=== PATIENT | male | born 1930 | race African-American/Black ===

== ENCOUNTER 2018-08-09 12:06 | Inpatient (IN) | payer MEDICARE, MEDICAID ==
[~2018-08-09] VITALS: Ht 190.5 cm; Wt 79.8 kg
[~2018-08-09 12:06] MED LIST: ASPI-1158; ATOR10TA PO; BICA50TA48; CLOP75TA16; COR6 PO; FAMO-38 PO; FERR325T30 PO; FOLI-43 PO; ISOS60TA4 PO; NITR0.4T; SPIR25TA PO
[2018-08-09] MEDS ORDERED: SODIUM CHLORIDE 0.9% 1,000 ML IV ONE (12:40)
[2018-08-09] MEDS ORDERED: AMPICILLIN SOD/SULBACTAM NA 3 G in SODIUM CHLORIDE 0.9% 100 ML IV SCH (12:45)
[2018-08-09 13:19] LABS: HEMATOCRIT. 31.7 % (42.0-52.0); HEMOGLOBIN. 10.4 g/dL (14.0-18.0); MEAN CORPUSCULAR HEMOGLOBIN 40.3 pg (28.0-32.0); MEAN PLATELET VOLUME 9.1 fl (7.4-10.4); PLATELET 194 x1000/uL (130-400); RED BLOOD CELL COUNT 2.58 mill/uL (4.7-6.1); RED CELL DISTRIBUTION WIDTH 16.4 % (11.6-14.6)
[2018-08-09 13:23] LABS: CHLORIDE 109 mEq/L (98-107)
[2018-08-09] MEDS ORDERED: HYDROCODONE/ACETAMINOPHEN 10/325MG TABLET PO ONE (14:15)
[2018-08-09] MEDS ORDERED: CLONIDINE 0.1MG TABLET PO PRN (14:30)
[2018-08-09] MEDS ORDERED: ONDANSETRON HCL 4MG/2ML INJ IV PRN (14:30)
[2018-08-09 15:40] VITALS: BP 144/72
[2018-08-09 16:00] VITALS: BP 144/72
[2018-08-09 16:13] LABS: PLATELET ESTIMATE NORMAL
[2018-08-09] MEDS: ENOXAPARIN 40MG/0.4ML SYR SUBCUT SCH (17:08)
[2018-08-09] MEDS: HYDROMORPHONE HCL/PF 2MG/ML CPJ IV PRN (17:08)
[2018-08-09] MEDS ORDERED: VANCOMYCIN 1500MG in DEXTROSE 5% WATER 250ML IV NR (18:00)
[2018-08-09] MEDS: HYDROCODONE/ACETAMINOPHEN 5/325MG TABLET PO PRN (18:58)
[2018-08-09] MEDS: DEXT 5%/0.45% NACL 1000ML 1,000 ML IV SCH (19:55)
[2018-08-09 20:00] VITALS: BP 166/76
[2018-08-09] MEDS ORDERED: PIPERACILLIN/TAZ 3.375G PREMIX 50 ML IV SCH (20:00)
[2018-08-09] MEDS: ATORVASTATIN CALCIUM 10MG TABLET PO SCH (21:08)
[2018-08-09] MEDS: FAMOTIDINE 20MG TABLET PO SCH (21:08)
[2018-08-09] MEDS: CARVEDILOL 6.25 MG TABLET PO SCH (21:10)
[2018-08-10] VITALS: BP 124/50
[2018-08-10] MEDS: HYDROCODONE/ACETAMINOPHEN 5/325MG TABLET PO PRN ×2 (01:52→23:55)
[2018-08-10 04:00] VITALS: BP 129/51
[2018-08-10] MEDS: PIPERACILLIN/TAZ 3.375G PREMIX 50 ML IV SCH ×2 (05:11→11:57)
[2018-08-10 06:43] LABS: HEMATOCRIT. 27.9 % (42.0-52.0); HEMOGLOBIN. 9.4 g/dL (14.0-18.0); MEAN CORPUSCULAR HEMOGLOBIN 40.5 pg (28.0-32.0); MEAN CORPUSCULAR VOLUME 120.2 fL (80.0-94.0); MEAN PLATELET VOLUME 9.1 fl (7.4-10.4); PLATELET 178 x1000/uL (130-400); RED BLOOD CELL COUNT 2.32 mill/uL (4.7-6.1); RED CELL DISTRIBUTION WIDTH 15.6 % (11.6-14.6)
[2018-08-10 06:46] LABS: CHLORIDE 109 mEq/L (98-107)
[2018-08-10 06:55] LABS: LDL CHOLESTEROL 79 mg/dL (5-100)
[2018-08-10 06:58] LABS: HDL CHOLESTEROL 45 mg/dL (40-59)
[2018-08-10] MEDS: DEXT 5%/0.45% NACL 1000ML 1,000 ML IV SCH ×2 (07:24→21:15)
[2018-08-10 08:00] VITALS: BP 108/52
[2018-08-10] MEDS: BICALUTAMIDE 50 MG TABLET PO SCH (08:55)
[2018-08-10] MEDS: CARVEDILOL 6.25 MG TABLET PO SCH ×2 (08:55→20:00)
[2018-08-10] MEDS: FOLIC ACID 1MG TABLET PO SCH (08:55)
[2018-08-10] MEDS: ISOSORBIDE MONONITRATE 60MG TABLET SR 24HR PO SCH (08:56)
[2018-08-10] MEDS: FAMOTIDINE 20MG TABLET PO SCH ×2 (08:56→20:01)
[2018-08-10] MEDS ORDERED: CLOPIDOGREL 75MG TABLET PO SCH (09:00)
[2018-08-10] MEDS ORDERED: FUROSEMIDE 40MG/4ML VIAL IV SCH (09:00)
[2018-08-10] MEDS ORDERED: VANCOMYCIN 1250MG in DEXTROSE 5% WATER 250ML IV SCH (10:00)
[2018-08-10 12:15] VITALS: BP 128/50
[2018-08-10] MEDS: VANCOMYCIN 1250MG in DEXTROSE 5% WATER 250ML IV SCH (12:49)
[2018-08-10] MEDS: ASPIRIN 81MG TABLET PO SCH (12:49)
[2018-08-10] MEDS: HYDROMORPHONE HCL/PF 2MG/ML CPJ IV PRN ×2 (13:16→20:00)
[2018-08-10 15:35] VITALS: BP 125/59
[2018-08-10 16:23] LABS: PLATELET ESTIMATE NORMAL
[2018-08-10 16:58] LABS: TOTAL IRON BINDING CAPACITY 219 ug/dL (250-450)
[2018-08-10 17:23] LABS: VITAMIN B12 SERUM 668 pg/mL (211-911)
[2018-08-10] MEDS ORDERED: CLINDAMYCIN 600 MG in DEXTROSE 5% WATER 50 ML IV SCH (18:00)
[2018-08-10] MEDS: CEFTRIAXONE 1 G PREMIX 50 ML IV SCH (18:35)
[2018-08-10] MEDS: ENOXAPARIN 40MG/0.4ML SYR SUBCUT SCH (18:35)
[2018-08-10] MEDS: CLINDAMYCIN 600MG PREMIX 50 ML IV SCH (19:56)
[2018-08-10 20:00] VITALS: BP 137/58
[2018-08-10] MEDS: ATORVASTATIN CALCIUM 10MG TABLET PO SCH (20:00)
[2018-08-10] MEDS ORDERED: IOHEXOL-350 100 ML BOTTLE ONE (21:06)
[2018-08-11] VITALS: BP 123/53
[2018-08-11] MEDS: CLINDAMYCIN 600MG PREMIX 50 ML IV SCH ×3 (01:05→18:09)
[2018-08-11] MEDS: HYDROMORPHONE HCL/PF 2MG/ML CPJ IV PRN (03:15)
[2018-08-11 04:00] VITALS: BP 129/51
[2018-08-11] MEDS: VANCOMYCIN 1250MG in DEXTROSE 5% WATER 250ML IV SCH ×2 (05:45→23:46)
[2018-08-11 06:05] LABS: HEMOGLOBIN. 9.7 g/dL (14.0-18.0); MEAN CORPUSCULAR HEMOGLOBIN 40.3 pg (28.0-32.0); MEAN CORPUSCULAR VOLUME 120.1 fL (80.0-94.0); PLATELET 185 x1000/uL (130-400); RED BLOOD CELL COUNT 2.41 mill/uL (4.7-6.1); RED CELL DISTRIBUTION WIDTH 15.6 % (11.6-14.6)
[2018-08-11 06:17] LABS: CHLORIDE 105 mEq/L (98-107)
[2018-08-11 06:20] LABS: CLARITY URINE CLEAR (CLEAR); COLOR URINE YELLOW (YELLOW); KETONES URINE NEGATIVE (NEGATIVE); LEUKOCYTE ESTERASE URINE NEGATIVE (NEGATIVE); NITRITE URINE POSITIVE (NEGATIVE); OCCULT BLOOD URINE NEGATIVE (NEGATIVE); PROTEIN URINE TRACE (NEGATIVE); SPECIFIC GRAVITY URINE 1.049 (1.005-1.030); UROBILINOGEN URINE 0.2 E.U./dL (0.2-1.0)
[2018-08-11 08:00] VITALS: BP 108/57
[2018-08-11] MEDS: ISOSORBIDE MONONITRATE 60MG TABLET SR 24HR PO SCH (09:00)
[2018-08-11] MEDS: CARVEDILOL 6.25 MG TABLET PO SCH ×2 (09:00→20:27)
[2018-08-11] MEDS: FUROSEMIDE 20MG TABLET PO SCH (09:05)
[2018-08-11] MEDS: ASPIRIN 81MG TABLET PO SCH (09:05)
[2018-08-11] MEDS: FOLIC ACID 1MG TABLET PO SCH (09:05)
[2018-08-11] MEDS: FAMOTIDINE 20MG TABLET PO SCH ×2 (09:05→20:27)
[2018-08-11 09:43] LABS: PLATELET ESTIMATE NORMAL
[2018-08-11] MEDS: BICALUTAMIDE 50 MG TABLET PO SCH (10:01)
[2018-08-11 12:00] VITALS: BP 126/60
[2018-08-11 16:00] VITALS: BP 116/62
[2018-08-11] MEDS: CEFTRIAXONE 1 G PREMIX 50 ML IV SCH (16:08)
[2018-08-11] MEDS: ENOXAPARIN 40MG/0.4ML SYR SUBCUT SCH (16:08)
[2018-08-11 20:00] VITALS: BP 127/58
[2018-08-11] MEDS: ACETAMINOPHEN 325MG TABLET PO PRN (20:24)
[2018-08-11] MEDS: ATORVASTATIN CALCIUM 10MG TABLET PO SCH (20:27)
[2018-08-12] VITALS (7 sets, daily range): BP systolic 105–129; BP diastolic 47–58
[2018-08-12] MEDS: HYDROCODONE/ACETAMINOPHEN 5/325MG TABLET PO PRN ×3 (00:22→21:06)
[2018-08-12] MEDS: CLINDAMYCIN 600MG PREMIX 50 ML IV SCH ×3 (02:03→18:14)
[2018-08-12 06:34] LABS: HEMATOCRIT. 29.8 % (42.0-52.0); HEMOGLOBIN. 10.6 g/dL (14.0-18.0); MEAN CORPUSCULAR HEMOGLOBIN 42.3 pg (28.0-32.0); MEAN CORPUSCULAR VOLUME 119.3 fL (80.0-94.0); PLATELET 197 x1000/uL (130-400); RED CELL DISTRIBUTION WIDTH 15.5 % (11.6-14.6)
[2018-08-12 06:48] LABS: CHLORIDE 106 mEq/L (98-107)
[2018-08-12] MEDS: FAMOTIDINE 20MG TABLET PO SCH ×2 (09:08→20:39)
[2018-08-12] MEDS: ASPIRIN 81MG TABLET PO SCH (09:08)
[2018-08-12] MEDS: FUROSEMIDE 20MG TABLET PO SCH (09:08)
[2018-08-12] MEDS: FOLIC ACID 1MG TABLET PO SCH (09:08)
[2018-08-12] MEDS: ISOSORBIDE MONONITRATE 60MG TABLET SR 24HR PO SCH (09:09)
[2018-08-12] MEDS: CARVEDILOL 6.25 MG TABLET PO SCH ×2 (09:09→20:54)
[2018-08-12] MEDS: BICALUTAMIDE 50 MG TABLET PO SCH (10:40)
[2018-08-12] MEDS: VANCOMYCIN 1 G PREMIX 200 ML IV SCH (13:05)
[2018-08-12 13:06] LABS: PLATELET ESTIMATE NORMAL
[2018-08-12] MEDS: CEFTRIAXONE 1 G PREMIX 50 ML IV SCH (16:09)
[2018-08-12] MEDS: ENOXAPARIN 40MG/0.4ML SYR SUBCUT SCH (16:09)
[2018-08-12] MEDS: ATORVASTATIN CALCIUM 10MG TABLET PO SCH (20:39)
[2018-08-13] MEDS: CLINDAMYCIN 600MG PREMIX 50 ML IV SCH ×3 (01:29→19:30)
[2018-08-13] MEDS: VANCOMYCIN 1 G PREMIX 200 ML IV SCH ×2 (01:29→13:06)
[2018-08-13 03:54] VITALS: BP 119/56
[2018-08-13 08:00] VITALS: BP 116/50
[2018-08-13] MEDS: FUROSEMIDE 20MG TABLET PO SCH (09:00)
[2018-08-13] MEDS: ASPIRIN 81MG TABLET PO SCH (09:00)
[2018-08-13] MEDS: FAMOTIDINE 20MG TABLET PO SCH (09:00)
[2018-08-13] MEDS: FOLIC ACID 1MG TABLET PO SCH (09:00)
[2018-08-13] MEDS: ISOSORBIDE MONONITRATE 60MG TABLET SR 24HR PO SCH (09:01)
[2018-08-13] MEDS: CARVEDILOL 6.25 MG TABLET PO SCH ×2 (09:01→20:12)
[2018-08-13] MEDS: HYDROCODONE/ACETAMINOPHEN 5/325MG TABLET PO PRN ×2 (09:02→20:15)
[2018-08-13] MEDS: BICALUTAMIDE 50 MG TABLET PO SCH (10:15)
[2018-08-13] MEDS: PANTOPRAZOLE SODIUM 40 MG/VIAL IV SCH (11:23)
[2018-08-13] MEDS: ACETAMINOPHEN 325MG TABLET PO PRN (11:23)
[2018-08-13 11:44] VITALS: BP 115/62
[2018-08-13 15:50] VITALS: BP 113/65
[2018-08-13] MEDS: ENOXAPARIN 40MG/0.4ML SYR SUBCUT SCH (16:10)
[2018-08-13] MEDS: CEFTRIAXONE 1 G PREMIX 50 ML IV SCH (16:11)
[2018-08-13 20:00] VITALS: BP 120/55
[2018-08-13] MEDS: ATORVASTATIN CALCIUM 10MG TABLET PO SCH (20:15)
[2018-08-13] MEDS: HYDROMORPHONE HCL/PF 2MG/ML CPJ IV PRN (23:14)
[2018-08-14] VITALS (12 sets, daily range): BP systolic 103–132; BP diastolic 46–85
[2018-08-14] MEDS: CLINDAMYCIN 600MG PREMIX 50 ML IV SCH ×2 (01:56→09:04)
[2018-08-14 07:07] LABS: CHLORIDE 104 mEq/L (98-107)
[2018-08-14 07:58] LABS: HEMATOCRIT. 29.6 % (42.0-52.0); MEAN CORPUSCULAR HEMOGLOBIN 40.4 pg (28.0-32.0); MEAN CORPUSCULAR VOLUME 119.5 fL (80.0-94.0); MEAN PLATELET VOLUME 9.1 fl (7.4-10.4); PLATELET 200 x1000/uL (130-400); RED BLOOD CELL COUNT 2.48 mill/uL (4.7-6.1); RED CELL DISTRIBUTION WIDTH 15.4 % (11.6-14.6)
[2018-08-14] MEDS: HYDROMORPHONE HCL/PF 2MG/ML CPJ IV PRN (08:11)
[2018-08-14] MEDS: ASPIRIN 81MG TABLET PO SCH ×2 (09:00→09:02)
[2018-08-14] MEDS ORDERED: BICALUTAMIDE 50 MG TABLET PO SCH (09:00)
[2018-08-14] MEDS: FUROSEMIDE 20MG TABLET PO SCH (09:02)
[2018-08-14] MEDS: ISOSORBIDE MONONITRATE 60MG TABLET SR 24HR PO SCH (09:02)
[2018-08-14] MEDS: CARVEDILOL 6.25 MG TABLET PO SCH ×2 (09:02→21:42)
[2018-08-14] MEDS: FOLIC ACID 1MG TABLET PO SCH (09:04)
[2018-08-14] MEDS: PANTOPRAZOLE SODIUM 40 MG/VIAL IV SCH (09:08)
[2018-08-14] MEDS: BICALUTAMIDE 50 MG TABLET PO SCH (09:27)
[2018-08-14] MEDS: VANCOMYCIN 1 G PREMIX 200 ML IV SCH ×2 (12:34)
[2018-08-14] MEDS: HYDROCODONE/ACETAMINOPHEN 5/325MG TABLET PO PRN (12:35)
[2018-08-14 13:31] LABS: PLATELET ESTIMATE NORMAL
[2018-08-14] MEDS ORDERED: NICARDIPINE 100MCG/ML 10ML VIAL (CATH LAB) IV ONE (13:34)
[2018-08-14] MEDS ORDERED: NITROGLYCERIN 50MCG/ML 10ML VIAL (CATH LAB) IV ONE (13:34)
[2018-08-14] MEDS ORDERED: HEPARIN SODIUM 1,000 UNIT/1ML VIAL IV ONE (13:34)
[2018-08-14] MEDS ORDERED: MIDAZOLAM HCL 2 MG/2 ML VIAL ONE (14:12)
[2018-08-14] MEDS ORDERED: FENTANYL CITRATE/PF 50MCG/ML 2ML VIAL ONE (14:12)
[2018-08-14] MEDS ORDERED: LIDOCAINE HCL 1% 20ML VIAL (Pyxis) INJ ONE (14:13)
[2018-08-14] MEDS ORDERED: IODIXANOL 320MG/ML 100 ML BOTTLE IV ONE (14:13)
[2018-08-14] MEDS ORDERED: ASPIRIN/SOD BICARB/CITRIC ACID 324MG TAB EFF ONE (14:13)
[2018-08-14] MEDS ORDERED: IOHEXOL-300 100 ML BOTTLE ONE (14:48)
[2018-08-14] MEDS ORDERED: CLOPIDOGREL 75MG TABLET ONE (15:44)
[2018-08-14] MEDS ORDERED: CLOPIDOGREL 75MG TABLET PO ONE (15:44)
[2018-08-14] MEDS: ENOXAPARIN 40MG/0.4ML SYR SUBCUT SCH (16:00)
[2018-08-14] MEDS ORDERED: ATROPINE SULFATE 1MG/10ML SYR IV PRN (16:00)
[2018-08-14] MEDS ORDERED: ACETAMINOPHEN 325MG TABLET PO PRN (16:00)
[2018-08-14] MEDS ORDERED: SODIUM CHLORIDE 0.45% 1,000 ML IV ONE (16:15)
[2018-08-14] MEDS: CEFTRIAXONE 1 G PREMIX 50 ML IV SCH (17:29)
[2018-08-14] MEDS ORDERED: CLINDAMYCIN 600 MG in DEXTROSE 5% WATER 50 ML IV SCH (18:00)
[2018-08-14] MEDS: MORPHINE SULFATE 4 MG/ML CPJ (NOT FOR IM USE) IV PRN (19:42)
[2018-08-14] MEDS: ATORVASTATIN CALCIUM 10MG TABLET PO SCH (21:42)
[2018-08-15] VITALS (19 sets, daily range): BP systolic 105–146; BP diastolic 43–62
[2018-08-15] MEDS: MORPHINE SULFATE 4 MG/ML CPJ (NOT FOR IM USE) IV PRN ×2 (01:18→08:48)
[2018-08-15 07:11] LABS: HEMATOCRIT. 27.8 % (42.0-52.0); HEMOGLOBIN. 9.6 g/dL (14.0-18.0); MEAN CORPUSCULAR HEMOGLOBIN 40.3 pg (28.0-32.0); MEAN CORPUSCULAR VOLUME 117.3 fL (80.0-94.0); PLATELET 198 x1000/uL (130-400); RED BLOOD CELL COUNT 2.37 mill/uL (4.7-6.1); RED CELL DISTRIBUTION WIDTH 14.8 % (11.6-14.6)
[2018-08-15 07:36] LABS: CHLORIDE 105 mEq/L (98-107)
[2018-08-15] MEDS: PANTOPRAZOLE SODIUM 40 MG/VIAL IV SCH (08:34)
[2018-08-15] MEDS: CEFAZOLIN 1000MG PREMIX 50 ML IV SCH ×2 (08:34→12:59)
[2018-08-15] MEDS: FOLIC ACID 1MG TABLET PO SCH (08:34)
[2018-08-15] MEDS: ASPIRIN 81MG TABLET PO SCH (08:35)
[2018-08-15] MEDS: ISOSORBIDE MONONITRATE 60MG TABLET SR 24HR PO SCH (08:35)
[2018-08-15] MEDS: FUROSEMIDE 20MG TABLET PO SCH (08:35)
[2018-08-15] MEDS: CARVEDILOL 6.25 MG TABLET PO SCH (08:35)
[2018-08-15] MEDS ORDERED: CLOPIDOGREL 75MG TABLET PO SCH (09:00)
[2018-08-15] MEDS: BICALUTAMIDE 50 MG TABLET PO SCH (10:11)
[2018-08-15 12:21] LABS: PLATELET ESTIMATE NORMAL
== END 2018-08-15 15:44 | DRG 181 ==
LOC: ER 12:23 → 6EST 14:23 → EDBEDREQ 14:29 → ENRESERV 14:35 → 3WST 08-14 16:18
PROVIDERS: ADMIT Internal Medicine Nephrology; ATTEND Internal Medicine Nephrology
PROC: B41G1ZZ Fluoroscopy of Left Lower Extremity Arteries using Low Osmolar Contrast (ICD-10-PCS; principal; 2018-08-14)
PROC: 047L3DZ Dilation of Left Femoral Artery with Intraluminal Device, Percutaneous Approach (ICD-10-PCS; 2018-08-14)
PROC: 047U3ZZ Dilation of Left Peroneal Artery, Percutaneous Approach (ICD-10-PCS; 2018-08-14)
DX: I73.9 Peripheral vascular disease, unspecified (principal); E43 Unspecified severe protein-calorie malnutrition; L03.115 Cellulitis of right lower limb; I11.0 Hypertensive heart disease with heart failure; I50.9 Heart failure, unspecified; L03.116 Cellulitis of left lower limb; L97.919 Non-pressure chronic ulcer of unspecified part of right lower leg with unspecified severity; D72.819 Decreased white blood cell count, unspecified; E78.00 Pure hypercholesterolemia, unspecified; I99.8 Other disorder of circulatory system; I25.10 Atherosclerotic heart disease of native coronary artery without angina pectoris; H91.90 Unspecified hearing loss, unspecified ear; S90.812A Abrasion, left foot, initial encounter; X58.XXXA Exposure to other specified factors, initial encounter; E78.5 Hyperlipidemia, unspecified; L97.929 Non-pressure chronic ulcer of unspecified part of left lower leg with unspecified severity; R26.9 Unspecified abnormalities of gait and mobility; Z79.82 Long term (current) use of aspirin; Z85.028 Personal history of other malignant neoplasm of stomach; Z95.1 Presence of aortocoronary bypass graft; Z79.899 Other long term (current) drug therapy; Y93.89 Activity, other specified; Y92.89 Other specified places as the place of occurrence of the external cause; Y99.8 Other external cause status; Z68.22 Body mass index [BMI] 22.0-22.9, adult; D53.9 Nutritional anemia, unspecified
CPT/HCPCS: 36415; 37226; 37228; 75635; 75710; 80048; 80061; 80202; 82270; 82607; 83540; 83550; 83735; 84100; 84484; 85044; 85347; 93005; 93306; 93971; 96365; 97022; 97116; 97162; 97166; 97530; 99285; C1725; C1760; C1769; C1887; C1893; C1894; C9113; J0295; J0690; J0696; J1170; J1644; J1650; J1940; J2250; J2270; J2543; J3010; J3370; J3490; J7030; J7040; J7050; J7060; Q9967

== ENCOUNTER 2019-02-06 08:37 | Inpatient (IN) | payer MEDICARE, MEDICAID ==
[~2019-02-06] VITALS: Ht 185.4 cm; Wt 84.8 kg
[~2019-02-06 08:37] MED LIST changes: -CLOP75TA16; +CLOP75TA4
[2019-02-06] MEDS ORDERED: POTA10CA42 MT (09:20)
[2019-02-06] MEDS ORDERED: TAMS-11 MT (09:20)
[2019-02-06] MEDS ORDERED: PHEN100C4 MT (09:20)
[2019-02-06] MEDS ORDERED: FLUT100B INH (09:20)
[2019-02-06] MEDS ORDERED: PROM5SYR MT (09:20)
[2019-02-06] MEDS ORDERED: IODIXANOL 320MG/ML 100 ML BOTTLE IV ONE (09:39)
[2019-02-06] MEDS ORDERED: LIDOCAINE HCL 1% 20ML VIAL (Pyxis) INJ ONE (09:39)
[2019-02-06] MEDS ORDERED: ASPIRIN/SOD BICARB/CITRIC ACID 324MG TAB EFF ONE (09:40)
[2019-02-06] MEDS ORDERED: FENTANYL CITRATE/PF 50MCG/ML 2ML VIAL ONE (09:49)
[2019-02-06] MEDS ORDERED: MIDAZOLAM HCL 2 MG/2 ML VIAL ONE (09:49)
[2019-02-06 09:53] LABS: HEMATOCRIT 30.9 % (42.0-52.0); HEMOGLOBIN 10.4 g/dL (14.0-18.0); MEAN CORPUSCULAR HEMOGLOBIN 41.2 pg (28.0-32.0); MEAN CORPUSCULAR VOLUME 122.4 fL (80.0-94.0); PLATELET 165 x1000/uL (130-400); RED BLOOD CELL COUNT 2.53 mill/uL (4.7-6.1); RED CELL DISTRIBUTION WIDTH 16.4 % (11.6-14.6)
[2019-02-06] MEDS ORDERED: HEPARIN SODIUM 1,000 UNIT/1ML VIAL IV ONE (10:17)
[2019-02-06] MEDS ORDERED: NITROGLYCERIN 50MCG/ML 10ML VIAL (CATH LAB) IV ONE (10:17)
[2019-02-06] MEDS ORDERED: NICARDIPINE 100MCG/ML 10ML VIAL (CATH LAB) IV ONE (10:17)
[2019-02-06] MEDS ORDERED: IOHEXOL-300 100 ML BOTTLE ONE (10:38)
[2019-02-06] MEDS ORDERED: MORPHINE SULFATE 2 MG/ML CPJ (NOT FOR IM USE) IV PRN (11:45)
[2019-02-06] MEDS ORDERED: ACETAMINOPHEN 325MG TABLET PO PRN (11:45)
[2019-02-06] MEDS ORDERED: ATROPINE SULFATE 1MG/10ML SYR IV PRN (11:45)
[2019-02-06] MEDS ORDERED: ONDANSETRON HCL 4MG/2ML INJ IV PRN (11:45)
[2019-02-06] MEDS ORDERED: CLOPIDOGREL 75MG TABLET ONE (11:58)
[2019-02-06 13:25] VITALS: BP 141/78
[2019-02-06 14:00] VITALS: BP 139/73
[2019-02-06] MEDS ORDERED: SODIUM CHLORIDE 0.45% 1,000 ML IV ONE (14:15)
[2019-02-06] MEDS: PHENYTOIN SODIUM EXTENDED 100MG CAPSULE PO SCH ×2 (15:26→21:47)
[2019-02-06 16:00] VITALS: BP 141/74
[2019-02-06 18:00] VITALS: BP 137/59
[2019-02-06 20:00] VITALS: BP 136/55
[2019-02-06] MEDS ORDERED: ATORVASTATIN CALCIUM 20MG TABLET PO SCH (21:00)
[2019-02-06] MEDS: CARVEDILOL 3.125 MG TABLET PO SCH (21:46)
[2019-02-06 22:00] VITALS: BP 135/78
[2019-02-07] VITALS (7 sets, daily range): BP systolic 130–144; BP diastolic 56–72
[2019-02-07] MEDS: PHENYTOIN SODIUM EXTENDED 100MG CAPSULE PO SCH (05:50)
[2019-02-07 07:23] LABS: CHLORIDE 107 mEq/L (98-107)
[2019-02-07 07:31] LABS: HEMATOCRIT. 29.9 % (42.0-52.0); HEMOGLOBIN. 10.2 g/dL (14.0-18.0); MEAN CORPUSCULAR HEMOGLOBIN 42.1 pg (28.0-32.0); MEAN CORPUSCULAR VOLUME 123.2 fL (80.0-94.0); MEAN PLATELET VOLUME 9.2 fl (7.4-10.4); PLATELET 141 x1000/uL (130-400); RED BLOOD CELL COUNT 2.43 mill/uL (4.7-6.1); RED CELL DISTRIBUTION WIDTH 15.9 % (11.6-14.6)
[2019-02-07] MEDS: CARVEDILOL 3.125 MG TABLET PO SCH (08:45)
[2019-02-07] MEDS ORDERED: TAMSULOSIN HCL 0.4MG SR CAPSULE PO SCH (09:00)
[2019-02-07] MEDS ORDERED: ISOSORBIDE MONONITRATE 60MG TABLET SR 24HR PO SCH (09:00)
[2019-02-07] MEDS ORDERED: CLOPIDOGREL 75MG TABLET PO SCH (09:00)
[2019-02-07] MEDS ORDERED: ASPIRIN 81MG TABLET PO SCH (09:00)
[2019-02-07 14:00] LABS: NUCLEATED RED BLOOD CELLS 1 /100 WBC
[2019-02-07 14:01] LABS: PLATELET ESTIMATE NORMAL
== END 2019-02-07 14:49 | disposition home or self-care (01) | DRG 181 ==
LOC: CCL 08:37 → 3WST 08:38
PROVIDERS: ADMIT Specialist; ATTEND Specialist
PROC: B41F1ZZ Fluoroscopy of Right Lower Extremity Arteries using Low Osmolar Contrast (ICD-10-PCS; principal; 2019-02-06)
PROC: 04CK3ZZ Extirpation of Matter from Right Femoral Artery, Percutaneous Approach (ICD-10-PCS; 2019-02-06)
PROC: 04CM3ZZ Extirpation of Matter from Right Popliteal Artery, Percutaneous Approach (ICD-10-PCS; 2019-02-06)
PROC: 047L3DZ Dilation of Left Femoral Artery with Intraluminal Device, Percutaneous Approach (ICD-10-PCS; 2019-02-06)
DX: I73.9 Peripheral vascular disease, unspecified (principal); I65.29 Occlusion and stenosis of unspecified carotid artery; D64.9 Anemia, unspecified; G40.909 Epilepsy, unspecified, not intractable, without status epilepticus; I99.8 Other disorder of circulatory system; Z95.5 Presence of coronary angioplasty implant and graft; I25.10 Atherosclerotic heart disease of native coronary artery without angina pectoris; I10 Essential (primary) hypertension; N40.0 Benign prostatic hyperplasia without lower urinary tract symptoms; E78.00 Pure hypercholesterolemia, unspecified; K21.9 Gastro-esophageal reflux disease without esophagitis; I25.5 Ischemic cardiomyopathy; Z95.1 Presence of aortocoronary bypass graft; Z85.028 Personal history of other malignant neoplasm of stomach; Z79.02 Long term (current) use of antithrombotics/antiplatelets; Z90.3 Acquired absence of stomach [part of]
CPT/HCPCS: 36415; 37227; 75710; 80048; 85027; 93005; C1724; C1725; C1760; C1769; C1876; C1887; C1893; C1894; J1644; J2250; J3010; J3490; Q9967

== ENCOUNTER 2020-11-14 09:36 | Inpatient (IN) | payer MEDICARE, MEDICAID ==
[~2020-11-14] VITALS: Ht 365.8 cm; Wt 95.4 kg
[~2020-11-14 09:36] MED LIST changes: -ASPI-1158; +ASPI-1406 PO; -ATOR10TA PO; +ATOR20TA65 PO; -BICA50TA48; +CARV3.1242 PO; +CLOP75TA33 PO; -CLOP75TA4; -COR6 PO; -FAMO-38 PO; +FAMO20TA8 PO; +FERR325T23 PO; -FERR325T30 PO; -FOLI-43 PO; -ISOS60TA4 PO; +ISOS60TA76 PO; -NITR0.4T; +PHEN100C12 PO; -SPIR25TA PO; +TAMS-11 PO
[2020-11-14 11:03] LABS: BASOPHILS % 1.2 % (0.0-2.0); EOSINOPHILS % 0.1 % (0.0-5.0); HEMATOCRIT. 26.9 % (42.0-52.0); HEMOGLOBIN. 8.8 g/dL (14.0-18.0); LYMPHOCYTES % 25.4 % (20.0-50.0); MEAN CORPUSCULAR HEMOGLOBIN 41.9 pg (28.0-32.0); MEAN PLATELET VOLUME 11.1 fl (7.4-10.4); MONOCYTES % 14.5 % (2.0-8.0); NEUTROPHILS % 58.8 % (40.0-76.0); PLATELET 89 x1000/uL (130-400); RED CELL DISTRIBUTION WIDTH 19.2 % (11.6-14.6)
[2020-11-14 11:11] LABS: CHLORIDE 111 mEq/L (98-107)
[2020-11-14 11:13] LABS: INR 1.2
[2020-11-14 11:45] LABS: PLATELET ESTIMATE DECREASED
[2020-11-14] MEDS ORDERED: LEVOFLOXACIN 750MG PREMIX 150 ML IV ONE (12:00)
[2020-11-14 12:16] LABS: BG CARBOXYHEMOGLOBIN 0.3 % (0.5-1.5); BG DEOXYHEMOGLOBIN 0.5 % (0.0-5.0); BG FRACTION INSPIRED OXYGEN 100; BG HCO3 ACT 25.3 mmol/L (22.0-26.0); BG METHEMOGLOBIN 0.7 % (0.0-1.5); BG OXYGEN SATURATION 99.5 % (92.0-98.5); BG OXYHEMOGLOBIN 98.5 % (94.0-97.0); BG PCO2 50.3 mmHg (35.0-45.0); BG PO2 351.9 mmHg (75.0-100.0); BG SAMPLE SITE RIGHT RADIAL; BG VENT MODE MASK - NRB
[2020-11-14] MEDS: FUROSEMIDE 40MG/4ML VIAL IVP SCH (13:06)
[2020-11-14] MEDS ORDERED: ONDANSETRON HCL 4MG/2ML INJ IV PRN (14:15)
[2020-11-14] MEDS ORDERED: ACETAMINOPHEN 325MG TABLET PO PRN (14:15)
[2020-11-14] MEDS ORDERED: IPRATROPIUM/ALBUTEROL 0.5-3(2.5)MG/3ML NEB HHN PRN (16:30)
[2020-11-14] MEDS ORDERED: METRONIDAZOLE 500 MG PREMIX 100 ML IV SCH (18:00)
[2020-11-14] MEDS: CEFEPIME 1,000 MG in DEXTROSE 5% WATER 50 ML IV SCH (19:04)
[2020-11-14] MEDS: CARVEDILOL 3.125 MG TABLET PO SCH (21:00)
[2020-11-14] MEDS: ATORVASTATIN CALCIUM 20MG TABLET PO SCH (21:00)
[2020-11-14 21:10] VITALS: BP 136/63
[2020-11-14 22:00] VITALS: BP 134/65
[2020-11-15] VITALS (17 sets, daily range): BP systolic 106–134; BP diastolic 43–62
[2020-11-15] MEDS: CEFEPIME 1,000 MG in DEXTROSE 5% WATER 50 ML IV SCH ×3 (05:00→22:07)
[2020-11-15 07:19] LABS: HEMATOCRIT. 23.4 % (42.0-52.0); HEMOGLOBIN. 7.6 g/dL (14.0-18.0); MEAN CORPUSCULAR HEMOGLOBIN 41.7 pg (28.0-32.0); MEAN PLATELET VOLUME 11.1 fl (7.4-10.4); PLATELET 74 x1000/uL (130-400); RED BLOOD CELL COUNT 1.83 mill/uL (4.7-6.1); RED CELL DISTRIBUTION WIDTH 18.9 % (11.6-14.6)
[2020-11-15 07:31] LABS: CHLORIDE 107 mEq/L (98-107)
[2020-11-15 07:38] LABS: LDL CHOLESTEROL 54 mg/dL (5-100)
[2020-11-15 07:40] LABS: HDL CHOLESTEROL 45 mg/dL (40-59); T4 FREE 1.04 ng/dL (0.76-1.46)
[2020-11-15 07:42] LABS: TOTAL IRON BINDING CAPACITY 224 ug/dL (250-450)
[2020-11-15 07:57] LABS: VITAMIN B12 SERUM 474 pg/mL (211-911)
[2020-11-15] MEDS ORDERED: CEFEPIME 1,000 MG in DEXTROSE 5% WATER 50 ML IV SCH (08:00)
[2020-11-15] MEDS: METRONIDAZOLE 500 MG PREMIX 100 ML IV SCH ×3 (08:12→22:06)
[2020-11-15] MEDS: FUROSEMIDE 40MG/4ML VIAL IVP SCH (09:07)
[2020-11-15] MEDS: CARVEDILOL 3.125 MG TABLET PO SCH ×2 (09:08→22:01)
[2020-11-15] MEDS: ASPIRIN 81MG TABLET PO SCH (09:09)
[2020-11-15 10:10] LABS: CLARITY URINE CLEAR (CLEAR); COLOR URINE YELLOW (YELLOW); KETONES URINE NEGATIVE (NEGATIVE); LEUKOCYTE ESTERASE URINE TRACE (NEGATIVE); NITRITE URINE NEGATIVE (NEGATIVE); OCCULT BLOOD URINE 2+ (NEGATIVE); PROTEIN URINE 1+ (NEGATIVE); SPECIFIC GRAVITY URINE 1.012 (1.005-1.030); UROBILINOGEN URINE 0.2 E.U./dL (0.2-1.0)
[2020-11-15 19:51] LABS: PLATELET ESTIMATE DECREASED
[2020-11-15] MEDS: ATORVASTATIN CALCIUM 20MG TABLET PO SCH (22:01)
[2020-11-16] VITALS (17 sets, daily range): BP systolic 110–135; BP diastolic 46–57
[2020-11-16] MEDS: METRONIDAZOLE 500 MG PREMIX 100 ML IV SCH ×3 (06:24→21:20)
[2020-11-16 07:02] LABS: CHLORIDE 105 mEq/L (98-107)
[2020-11-16 07:12] LABS: HEMATOCRIT. 23.9 % (42.0-52.0); HEMOGLOBIN. 8.1 g/dL (14.0-18.0); MEAN CORPUSCULAR HEMOGLOBIN 42.3 pg (28.0-32.0); MEAN CORPUSCULAR VOLUME 124.9 fL (80.0-94.0); MEAN PLATELET VOLUME 11.2 fl (7.4-10.4); PLATELET 81 x1000/uL (130-400); RED BLOOD CELL COUNT 1.91 mill/uL (4.7-6.1); RED CELL DISTRIBUTION WIDTH 18.2 % (11.6-14.6)
[2020-11-16 08:34] LABS: BG BASE EXCESS 7.7 mmol/L (-2.0-2.0); BG DEOXYHEMOGLOBIN 3.7 % (0.0-5.0); BG FRACTION INSPIRED OXYGEN 28; BG HCO3 ACT 32.5 mmol/L (22.0-26.0); BG METHEMOGLOBIN 0.8 % (0.0-1.5); BG OXYGEN SATURATION 96.2 % (92.0-98.5); BG OXYHEMOGLOBIN 94.5 % (94.0-97.0); BG PCO2 48.1 mmHg (35.0-45.0); BG PH 7.448 (7.350-7.450); BG PO2 84.9 mmHg (75.0-100.0); BG SAMPLE SITE LEFT RADIAL; BG VENT MODE NASAL CANNULA
[2020-11-16] MEDS: FUROSEMIDE 40MG/4ML VIAL IVP SCH (08:37)
[2020-11-16] MEDS: CEFEPIME 1,000 MG in DEXTROSE 5% WATER 50 ML IV SCH ×2 (08:37→20:29)
[2020-11-16] MEDS: ASPIRIN 81MG TABLET PO SCH (08:37)
[2020-11-16] MEDS: CARVEDILOL 3.125 MG TABLET PO SCH ×2 (08:37→20:30)
[2020-11-16] MEDS: FERROUS SULFATE 325MG TABLET PO SCH ×2 (13:51→16:36)
[2020-11-16] MEDS: DOCUSATE SODIUM 100MG CAPSULE PO SCH (16:36)
[2020-11-16 18:09] LABS: PLATELET ESTIMATE DECREASED
[2020-11-16] MEDS: ATORVASTATIN CALCIUM 20MG TABLET PO SCH (20:29)
[2020-11-17] VITALS (14 sets, daily range): BP systolic 105–145; BP diastolic 49–58
[2020-11-17] MEDS: METRONIDAZOLE 500 MG PREMIX 100 ML IV SCH ×3 (04:53→22:17)
[2020-11-17] MEDS ORDERED: CLOPIDOGREL 75MG TABLET PO SCH (09:00)
[2020-11-17] MEDS: FUROSEMIDE 40MG/4ML VIAL IVP SCH (09:01)
[2020-11-17] MEDS: DOCUSATE SODIUM 100MG CAPSULE PO SCH ×2 (09:01→17:00)
[2020-11-17] MEDS: CEFEPIME 1,000 MG in DEXTROSE 5% WATER 50 ML IV SCH ×2 (09:01→20:58)
[2020-11-17] MEDS: ASPIRIN 81MG TABLET PO SCH (09:01)
[2020-11-17] MEDS: CARVEDILOL 3.125 MG TABLET PO SCH ×2 (09:02→21:00)
[2020-11-17 10:07] LABS: BASOPHILS % 0.8 % (0.0-2.0); EOSINOPHILS % 0.2 % (0.0-5.0); HEMATOCRIT. 22.9 % (42.0-52.0); HEMOGLOBIN. 7.7 g/dL (14.0-18.0); LYMPHOCYTES % 22.4 % (20.0-50.0); MEAN CORPUSCULAR HEMOGLOBIN 41.5 pg (28.0-32.0); MEAN CORPUSCULAR VOLUME 124.4 fL (80.0-94.0); MEAN PLATELET VOLUME 10.8 fl (7.4-10.4); MONOCYTES % 13.3 % (2.0-8.0); NEUTROPHILS % 63.3 % (40.0-76.0); PLATELET 84 x1000/uL (130-400); RED BLOOD CELL COUNT 1.84 mill/uL (4.7-6.1); RED CELL DISTRIBUTION WIDTH 18.1 % (11.6-14.6)
[2020-11-17 10:25] LABS: CHLORIDE 101 mEq/L (98-107)
[2020-11-17] MEDS ORDERED: POTASSIUM CHLORIDE 20MEQ/PACKET PO NR (13:00)
[2020-11-17 13:15] LABS: BG BASE EXCESS 9.1 mmol/L (-2.0-2.0); BG CARBOXYHEMOGLOBIN 0.6 % (0.5-1.5); BG DEOXYHEMOGLOBIN 9.1 % (0.0-5.0); BG FRACTION INSPIRED OXYGEN 21; BG METHEMOGLOBIN 0.4 % (0.0-1.5); BG OXYGEN SATURATION 90.8 % (92.0-98.5); BG OXYHEMOGLOBIN 89.9 % (94.0-97.0); BG PCO2 48.8 mmHg (35.0-45.0); BG PH 7.461 (7.350-7.450); BG PO2 59.7 mmHg (75.0-100.0); BG SAMPLE SITE RIGHT RADIAL; BG TOTAL HEMOGLOBIN 9.1 g/dL (12.0-18.0); BG VENT MODE ROOM AIR
[2020-11-17] MEDS: FERROUS SULFATE 325MG TABLET PO SCH ×3 (14:45→18:00)
[2020-11-17] MEDS: MAGNESIUM OXIDE 400MG TABLET PO SCH (14:45)
[2020-11-17 15:26] LABS: FOLIC ACID (FOLATE) SERUM 17.3 ng/mL (>5.38)
[2020-11-17 17:03] LABS: BG BASE EXCESS 8.4 mmol/L (-2.0-2.0); BG CARBOXYHEMOGLOBIN 0.3 % (0.5-1.5); BG DEOXYHEMOGLOBIN 9.7 % (0.0-5.0); BG FRACTION INSPIRED OXYGEN 21; BG HCO3 ACT 33.1 mmol/L (22.0-26.0); BG METHEMOGLOBIN 0.9 % (0.0-1.5); BG OXYGEN SATURATION 90.2 % (92.0-98.5); BG OXYHEMOGLOBIN 89.1 % (94.0-97.0); BG PCO2 47.2 mmHg (35.0-45.0); BG PH 7.464 (7.350-7.450); BG PO2 59.8 mmHg (75.0-100.0); BG SAMPLE SITE RIGHT RADIAL; BG TOTAL HEMOGLOBIN 8.6 g/dL (12.0-18.0); BG VENT MODE ROOM AIR
[2020-11-17 19:22] LABS: BG BASE EXCESS 8.9 mmol/L (-2.0-2.0); BG CARBOXYHEMOGLOBIN 0.3 % (0.5-1.5); BG DEOXYHEMOGLOBIN 0.3 % (0.0-5.0); BG FRACTION INSPIRED OXYGEN 100; BG HCO3 ACT 33.3 mmol/L (22.0-26.0); BG METHEMOGLOBIN 0.6 % (0.0-1.5); BG OXYGEN SATURATION 99.7 % (92.0-98.5); BG OXYHEMOGLOBIN 98.8 % (94.0-97.0); BG PCO2 46.2 mmHg (35.0-45.0); BG PH 7.476 (7.350-7.450); BG PO2 406.3 mmHg (75.0-100.0); BG SAMPLE SITE RIGHT BRACHIAL; BG TOTAL HEMOGLOBIN 8.2 g/dL (12.0-18.0); BG TOTAL RESPIRATORY RATE 24 b/min; BG VENT MODE MASK - BIPAP
[2020-11-17] MEDS: DEXT 5%/0.45% NACL KCL 20MEQ/L 1,000 ML IV SCH (20:58)
[2020-11-17] MEDS: ATORVASTATIN CALCIUM 20MG TABLET PO SCH (21:00)
[2020-11-18] VITALS (13 sets, daily range): BP systolic 111–140; BP diastolic 47–62
[2020-11-18] MEDS: METRONIDAZOLE 500 MG PREMIX 100 ML IV SCH ×3 (05:07→22:47)
[2020-11-18 07:44] LABS: HEMATOCRIT. 22.1 % (42.0-52.0); HEMOGLOBIN. 7.2 g/dL (14.0-18.0); MEAN CORPUSCULAR HEMOGLOBIN 41.5 pg (28.0-32.0); MEAN CORPUSCULAR VOLUME 127.1 fL (80.0-94.0); MEAN PLATELET VOLUME 11.2 fl (7.4-10.4); PLATELET 76 x1000/uL (130-400); RED BLOOD CELL COUNT 1.74 mill/uL (4.7-6.1); RED CELL DISTRIBUTION WIDTH 17.7 % (11.6-14.6)
[2020-11-18] MEDS: FERROUS SULFATE 325MG TABLET PO SCH ×3 (08:00→18:00)
[2020-11-18] MEDS: DOCUSATE SODIUM 100MG CAPSULE PO SCH ×2 (09:00→17:00)
[2020-11-18] MEDS: ASCORBIC ACID 500 MG TABLET PO SCH (09:00)
[2020-11-18] MEDS: ASPIRIN 81MG TABLET PO SCH (09:00)
[2020-11-18] MEDS: MAGNESIUM OXIDE 400MG TABLET PO SCH (09:00)
[2020-11-18] MEDS: CARVEDILOL 3.125 MG TABLET PO SCH ×2 (09:00→20:10)
[2020-11-18 12:15] LABS: CHLORIDE 101 mEq/L (98-107)
[2020-11-18 14:00] LABS: BG BASE EXCESS 6.6 mmol/L (-2.0-2.0); BG CARBOXYHEMOGLOBIN 0.8 % (0.5-1.5); BG DEOXYHEMOGLOBIN 13.6 % (0.0-5.0); BG HCO3 ACT 31.6 mmol/L (22.0-26.0); BG METHEMOGLOBIN 0.6 % (0.0-1.5); BG OXYGEN SATURATION 86.2 % (92.0-98.5); BG PCO2 48.2 mmHg (35.0-45.0); BG PH 7.435 (7.350-7.450); BG PO2 52.2 mmHg (75.0-100.0); BG SAMPLE SITE RIGHT BRACHIAL; BG TOTAL HEMOGLOBIN 8.8 g/dL (12.0-18.0); BG VENT MODE ROOM AIR
[2020-11-18] MEDS: FUROSEMIDE 40MG/4ML VIAL IVP SCH (14:46)
[2020-11-18] MEDS: CEFEPIME 1,000 MG in DEXTROSE 5% WATER 50 ML IV SCH ×2 (14:55→21:45)
[2020-11-18] MEDS: DEXT 5%/0.45% NACL KCL 20MEQ/L 1,000 ML IV SCH (16:00)
[2020-11-18] MEDS: ATORVASTATIN CALCIUM 20MG TABLET PO SCH (20:11)
[2020-11-18 20:46] LABS: PLATELET ESTIMATE DECREASED
[2020-11-18 23:08] LABS: HEMATOCRIT 27.2 % (42.0-52.0)
[2020-11-18 23:18] LABS: INR 1.2; PROTHROMBIN TIME 12.5 sec (9.6-11.0)
[2020-11-19] VITALS (7 sets, daily range): BP systolic 105–129; BP diastolic 52–60
[2020-11-19] MEDS: METRONIDAZOLE 500 MG PREMIX 100 ML IV SCH ×3 (05:15→22:49)
[2020-11-19 06:17] LABS: CHLORIDE 98 mEq/L (98-107); HEMATOCRIT. 27.2 % (42.0-52.0); MEAN CORPUSCULAR HEMOGLOBIN 41.5 pg (28.0-32.0); MEAN CORPUSCULAR VOLUME 125.7 fL (80.0-94.0); MEAN PLATELET VOLUME 11.3 fl (7.4-10.4); PLATELET 72 x1000/uL (130-400); RED BLOOD CELL COUNT 2.16 mill/uL (4.7-6.1); RED CELL DISTRIBUTION WIDTH 22.2 % (11.6-14.6)
[2020-11-19] MEDS ORDERED: LACTULOSE 20G/30ML UDC PO SCH (06:30)
[2020-11-19] MEDS: FUROSEMIDE 40MG/4ML VIAL IVP SCH (09:16)
[2020-11-19] MEDS: CEFEPIME 1,000 MG in DEXTROSE 5% WATER 50 ML IV SCH ×2 (09:16→21:53)
[2020-11-19] MEDS ORDERED: BARIUM SULFATE 176 GM SUSP.RECON ONE (09:31)
[2020-11-19] MEDS ORDERED: POTASSIUM CHLORIDE 20MEQ/PACKET PO NR (09:45)
[2020-11-19] MEDS: FERROUS SULFATE 325MG TABLET PO SCH ×3 (13:00→18:31)
[2020-11-19] MEDS: DEXT 5%/0.45% NACL KCL 20MEQ/L 1,000 ML IV SCH (13:33)
[2020-11-19] MEDS: CARVEDILOL 3.125 MG TABLET PO SCH ×2 (13:34→21:54)
[2020-11-19] MEDS: MAGNESIUM OXIDE 400MG TABLET PO SCH (13:35)
[2020-11-19] MEDS: ASPIRIN 81MG TABLET PO SCH (13:35)
[2020-11-19] MEDS: ASCORBIC ACID 500 MG TABLET PO SCH (13:35)
[2020-11-19] MEDS: DOCUSATE SODIUM 100MG CAPSULE PO SCH ×2 (13:35→18:31)
[2020-11-19 17:27] LABS: PLATELET ESTIMATE DECREASED
[2020-11-19] MEDS: ATORVASTATIN CALCIUM 20MG TABLET PO SCH (21:54)
[2020-11-20 04:00] VITALS: BP 121/55
[2020-11-20 08:00] VITALS: BP 126/64
[2020-11-20] MEDS: CARVEDILOL 3.125 MG TABLET PO SCH (09:00)
[2020-11-20] MEDS: DOCUSATE SODIUM 100MG CAPSULE PO SCH (09:08)
[2020-11-20] MEDS: MAGNESIUM OXIDE 400MG TABLET PO SCH (09:08)
[2020-11-20] MEDS: ASPIRIN 81MG TABLET PO SCH (09:09)
[2020-11-20] MEDS: FERROUS SULFATE 325MG TABLET PO SCH ×2 (09:09→14:17)
[2020-11-20] MEDS: ASCORBIC ACID 500 MG TABLET PO SCH (09:09)
[2020-11-20] MEDS: DEXT 5%/0.45% NACL KCL 20MEQ/L 1,000 ML IV SCH (09:09)
[2020-11-20] MEDS: FUROSEMIDE 40MG/4ML VIAL IVP SCH (09:09)
[2020-11-20] MEDS ORDERED: POTASSIUM CHLORIDE 20MEQ TABLET SR PO SCH (11:15)
[2020-11-20 12:00] VITALS: BP 113/47
[2020-11-20 14:03] VITALS: BP 113/47
== END 2020-11-20 15:35 | disposition home or self-care (01) | DRG 133 ==
LOC: ER 09:36 → 5EST 12:52 → ENRESERV 19:29
PROVIDERS: ADMIT Internal Medicine; ATTEND Internal Medicine
PROC: 5A09357 Assistance with Respiratory Ventilation, Less than 24 Consecutive Hours, Continuous Positive Airway Pressure (ICD-10-PCS; 2020-11-14)
PROC: 5A09357 Assistance with Respiratory Ventilation, Less than 24 Consecutive Hours, Continuous Positive Airway Pressure (ICD-10-PCS; 2020-11-17)
PROC: 30233N1 Transfusion of Nonautologous Red Blood Cells into Peripheral Vein, Percutaneous Approach (ICD-10-PCS; principal; 2020-11-18)
DX: J96.01 Acute respiratory failure with hypoxia (principal); J69.0 Pneumonitis due to inhalation of food and vomit; I50.23 Acute on chronic systolic (congestive) heart failure; E44.1 Mild protein-calorie malnutrition; E72.20 Disorder of urea cycle metabolism, unspecified; E87.2 Acidosis; D69.6 Thrombocytopenia, unspecified; I27.20 Pulmonary hypertension, unspecified; I11.0 Hypertensive heart disease with heart failure; J84.9 Interstitial pulmonary disease, unspecified; I25.82 Chronic total occlusion of coronary artery; E87.8 Other disorders of electrolyte and fluid balance, not elsewhere classified; D50.9 Iron deficiency anemia, unspecified; D53.9 Nutritional anemia, unspecified; D72.819 Decreased white blood cell count, unspecified; E78.00 Pure hypercholesterolemia, unspecified; I25.5 Ischemic cardiomyopathy; E78.5 Hyperlipidemia, unspecified; G40.909 Epilepsy, unspecified, not intractable, without status epilepticus; I25.10 Atherosclerotic heart disease of native coronary artery without angina pectoris; I34.0 Nonrheumatic mitral (valve) insufficiency; I45.10 Unspecified right bundle-branch block; I65.29 Occlusion and stenosis of unspecified carotid artery; I73.9 Peripheral vascular disease, unspecified; R13.10 Dysphagia, unspecified; Z79.02 Long term (current) use of antithrombotics/antiplatelets; Z79.82 Long term (current) use of aspirin; Z79.899 Other long term (current) drug therapy; Z85.028 Personal history of other malignant neoplasm of stomach; I25.2 Old myocardial infarction; Z86.73 Personal history of transient ischemic attack (TIA), and cerebral infarction without residual deficits; Z95.1 Presence of aortocoronary bypass graft; Z95.5 Presence of coronary angioplasty implant and graft; Z68.1 Body mass index [BMI] 19.9 or less, adult
CPT/HCPCS: 36415; 36600; 71045; 74230; 80048; 80053; 80061; 81003; 82140; 82270; 82375; 82607; 82728; 82746; 82805; 82962; 83540; 83550; 83605; 83735; 84145; 84439; 84443; 84481; 84484; 85014; 85018; 85025; 85044; 85049; 85384; 86850; 86900; 86920; 92610; 92611; 93005; 93970; 97110; 97162; 97166; 97535; 99291; J0692; J1940; J1956; J3490; J7060; P9016

== ENCOUNTER 2021-02-23 15:29 | Inpatient (IN) | payer MEDICARE, MEDICAID ==
[~2021-02-23] VITALS: Ht 182.9 cm; Wt 71.4 kg
[~2021-02-23 15:29] MED LIST changes: +GABA100C MT
[2021-02-23] MEDS ORDERED: SODIUM CHLORIDE 0.9% 500 ML IV ONE ×2 (15:45→19:00)
[2021-02-23] MEDS ORDERED: PIPERACILLIN/TAZ 3.375G PREMIX 50 ML IV ONE (15:45)
[2021-02-23 16:02] LABS: HEMATOCRIT. 27.4 % (42.0-52.0); MEAN CORPUSCULAR HEMOGLOBIN 40.4 pg (28.0-32.0); MEAN CORPUSCULAR VOLUME 122.2 fL (80.0-94.0); MEAN PLATELET VOLUME 9.7 fl (7.4-10.4); PLATELET 164 x1000/uL (130-400); RED BLOOD CELL COUNT 2.24 mill/uL (4.7-6.1); RED CELL DISTRIBUTION WIDTH 16.3 % (11.6-14.6)
[2021-02-23 16:06] LABS: CHLORIDE 106 mEq/L (98-107)
[2021-02-23 16:15] LABS: CREATINE KINASE 70 IU/L (39-308)
[2021-02-23 16:42] LABS: PLATELET ESTIMATE NORMAL
[2021-02-23] MEDS ORDERED: NALOXONE HCL 0.4MG/ML VIAL IV PRN (21:00)
[2021-02-23] MEDS: HYDROCODONE/ACETAMINOPHEN 5/325MG TABLET PO PRN (21:11)
[2021-02-23 22:30] VITALS: BP 86/45
[2021-02-23 22:57] VITALS: BP 86/45
[2021-02-24] VITALS (12 sets, daily range): BP systolic 98–114; BP diastolic 41–62
[2021-02-24] MEDS: SODIUM CHLORIDE 0.9% 1,000 ML IV SCH ×2 (00:54→11:12)
[2021-02-24] MEDS: HYDROCODONE/ACETAMINOPHEN 5/325MG TABLET PO PRN ×2 (01:57→09:11)
[2021-02-24] MEDS: PHENYTOIN SODIUM EXTENDED 100MG CAPSULE PO SCH ×3 (06:03→22:21)
[2021-02-24 07:20] LABS: CLARITY URINE CLEAR (CLEAR); COLOR URINE YELLOW (YELLOW); KETONES URINE NEGATIVE (NEGATIVE); LEUKOCYTE ESTERASE URINE NEGATIVE (NEGATIVE); NITRITE URINE NEGATIVE (NEGATIVE); OCCULT BLOOD URINE NEGATIVE (NEGATIVE); PROTEIN URINE NEGATIVE (NEGATIVE); SPECIFIC GRAVITY URINE 1.015 (1.005-1.030); UROBILINOGEN URINE 0.2 E.U./dL (0.2-1.0)
[2021-02-24 07:39] LABS: HEMATOCRIT. 25.4 % (42.0-52.0); HEMOGLOBIN. 8.5 g/dL (14.0-18.0); MEAN CORPUSCULAR HEMOGLOBIN 40.6 pg (28.0-32.0); MEAN CORPUSCULAR VOLUME 121.5 fL (80.0-94.0); MEAN PLATELET VOLUME 9.9 fl (7.4-10.4); PLATELET 133 x1000/uL (130-400); RED BLOOD CELL COUNT 2.09 mill/uL (4.7-6.1); RED CELL DISTRIBUTION WIDTH 15.8 % (11.6-14.6)
[2021-02-24] MEDS: CLOPIDOGREL 75MG TABLET PO SCH (08:11)
[2021-02-24] MEDS: FAMOTIDINE 20MG TABLET PO SCH (08:11)
[2021-02-24] MEDS: ASPIRIN 81MG EC TABLET PO SCH (08:11)
[2021-02-24] MEDS: TAMSULOSIN HCL 0.4MG SR CAPSULE PO SCH (08:11)
[2021-02-24] MEDS ORDERED: HYDROCODONE/ACETAMINOPHEN 10/325MG TABLET PO PRN (09:45)
[2021-02-24] MEDS ORDERED: MORPHINE SULFATE 2 MG/ML CPJ (NOT FOR IM USE) IV SCH (09:45)
[2021-02-24] MEDS: GABAPENTIN 100MG CAPSULE PO SCH ×3 (09:52→18:09)
[2021-02-24] MEDS: IRON SUCROSE COMPLEX 100 MG/5 ML ML IV SCH (11:10)
[2021-02-24 13:54] LABS: PLATELET ESTIMATE NORMAL
[2021-02-24] MEDS: MIDODRINE HCL 5MG TABLET PO SCH ×2 (15:52→18:09)
[2021-02-24] MEDS: ATORVASTATIN CALCIUM 20MG TABLET PO SCH (22:21)
[2021-02-25] VITALS (8 sets, daily range): BP systolic 98–112; BP diastolic 40–71
[2021-02-25] MEDS: PHENYTOIN SODIUM EXTENDED 100MG CAPSULE PO SCH ×3 (06:08→22:33)
[2021-02-25] MEDS: TAMSULOSIN HCL 0.4MG SR CAPSULE PO SCH (08:11)
[2021-02-25] MEDS: SODIUM CHLORIDE 0.9% 1,000 ML IV SCH (08:11)
[2021-02-25] MEDS: ASPIRIN 81MG EC TABLET PO SCH (08:11)
[2021-02-25] MEDS: GABAPENTIN 100MG CAPSULE PO SCH ×3 (08:12→17:01)
[2021-02-25] MEDS: MIDODRINE HCL 5MG TABLET PO SCH ×3 (08:12→17:02)
[2021-02-25] MEDS: CLOPIDOGREL 75MG TABLET PO SCH (08:12)
[2021-02-25] MEDS: FAMOTIDINE 20MG TABLET PO SCH (08:12)
[2021-02-25 09:17] LABS: CHLORIDE 108 mEq/L (98-107)
[2021-02-25 09:22] LABS: HEMATOCRIT. 27.8 % (42.0-52.0); HEMOGLOBIN. 8.8 g/dL (14.0-18.0); MEAN CORPUSCULAR HEMOGLOBIN 39.8 pg (28.0-32.0); MEAN CORPUSCULAR VOLUME 125.8 fL (80.0-94.0); MEAN PLATELET VOLUME 9.5 fl (7.4-10.4); PLATELET 131 x1000/uL (130-400); RED BLOOD CELL COUNT 2.21 mill/uL (4.7-6.1); RED CELL DISTRIBUTION WIDTH 16.7 % (11.6-14.6)
[2021-02-25 09:23] LABS: TOTAL IRON BINDING CAPACITY 291 ug/dL (250-450)
[2021-02-25 10:20] LABS: FOLIC ACID (FOLATE) SERUM 16.3 ng/mL (>5.38)
[2021-02-25] MEDS: IRON SUCROSE COMPLEX 100 MG/5 ML ML IV SCH (11:57)
[2021-02-25] MEDS ORDERED: VANCOMYCIN 1500MG in DEXTROSE 5% WATER 250ML IV NR (13:00)
[2021-02-25 17:28] LABS: PLATELET ESTIMATE NORMAL
[2021-02-25] MEDS: ATORVASTATIN CALCIUM 20MG TABLET PO SCH (20:39)
[2021-02-26] VITALS (11 sets, daily range): BP systolic 100–144; BP diastolic 37–58
[2021-02-26] MEDS: VANCOMYCIN 750 MG PREMIX 150 ML IV SCH ×2 (00:05→14:00)
[2021-02-26] MEDS: SODIUM CHLORIDE 0.9% 1,000 ML IV SCH ×2 (03:15→22:29)
[2021-02-26] MEDS: PHENYTOIN SODIUM EXTENDED 100MG CAPSULE PO SCH ×3 (06:05→22:28)
[2021-02-26] MEDS: GABAPENTIN 100MG CAPSULE PO SCH ×3 (08:58→18:15)
[2021-02-26] MEDS: FAMOTIDINE 20MG TABLET PO SCH (08:58)
[2021-02-26] MEDS: CLOPIDOGREL 75MG TABLET PO SCH (08:58)
[2021-02-26] MEDS: MIDODRINE HCL 5MG TABLET PO SCH ×3 (08:58→17:00)
[2021-02-26] MEDS: ASPIRIN 81MG EC TABLET PO SCH (08:58)
[2021-02-26] MEDS: TAMSULOSIN HCL 0.4MG SR CAPSULE PO SCH (08:58)
[2021-02-26 10:14] LABS: HEMATOCRIT. 22.2 % (42.0-52.0); HEMOGLOBIN. 7.4 g/dL (14.0-18.0); MEAN CORPUSCULAR HEMOGLOBIN 39.3 pg (28.0-32.0); MEAN CORPUSCULAR VOLUME 117.8 fL (80.0-94.0); MEAN PLATELET VOLUME 9.7 fl (7.4-10.4); PLATELET 124 x1000/uL (130-400); RED BLOOD CELL COUNT 1.88 mill/uL (4.7-6.1); RED CELL DISTRIBUTION WIDTH 15.8 % (11.6-14.6)
[2021-02-26 10:28] LABS: CHLORIDE 107 mEq/L (98-107)
[2021-02-26] MEDS: IRON SUCROSE COMPLEX 100 MG/5 ML ML IV SCH (11:58)
[2021-02-26 12:27] LABS: PLATELET ESTIMATE SLIGHTLY DECREASED
[2021-02-26] MEDS: CARVEDILOL 3.125 MG TABLET PO SCH (20:23)
[2021-02-26] MEDS: ATORVASTATIN CALCIUM 20MG TABLET PO SCH (20:23)
[2021-02-27] VITALS (10 sets, daily range): BP systolic 105–128; BP diastolic 40–58
[2021-02-27] MEDS: VANCOMYCIN 750 MG PREMIX 150 ML IV SCH ×3 (01:34→21:54)
[2021-02-27] MEDS: PHENYTOIN SODIUM EXTENDED 100MG CAPSULE PO SCH ×3 (06:43→21:54)
[2021-02-27 07:38] LABS: HEMATOCRIT. 26.6 % (42.0-52.0); HEMOGLOBIN. 8.3 g/dL (14.0-18.0); MEAN CORPUSCULAR HEMOGLOBIN 39.9 pg (28.0-32.0); MEAN CORPUSCULAR VOLUME 127.8 fL (80.0-94.0); MEAN PLATELET VOLUME 10.2 fl (7.4-10.4); PLATELET 112 x1000/uL (130-400); RED BLOOD CELL COUNT 2.08 mill/uL (4.7-6.1); RED CELL DISTRIBUTION WIDTH 17.2 % (11.6-14.6)
[2021-02-27 07:51] LABS: CHLORIDE 104 mEq/L (98-107)
[2021-02-27] MEDS: TAMSULOSIN HCL 0.4MG SR CAPSULE PO SCH (08:38)
[2021-02-27] MEDS: FAMOTIDINE 20MG TABLET PO SCH (08:38)
[2021-02-27] MEDS: MIDODRINE HCL 5MG TABLET PO SCH ×3 (08:38→17:00)
[2021-02-27] MEDS: ASPIRIN 81MG EC TABLET PO SCH (08:38)
[2021-02-27] MEDS: CARVEDILOL 3.125 MG TABLET PO SCH (08:38)
[2021-02-27] MEDS: GABAPENTIN 100MG CAPSULE PO SCH ×3 (08:38→17:22)
[2021-02-27] MEDS: CLOPIDOGREL 75MG TABLET PO SCH (08:38)
[2021-02-27] MEDS ORDERED: MAGNESIUM OXIDE 400MG TABLET PO SCH (09:30)
[2021-02-27 11:32] LABS: NUCLEATED RED BLOOD CELLS 1 /100 WBC; PLATELET ESTIMATE SLIGHTLY DECREASED
[2021-02-27] MEDS ORDERED: ONDANSETRON HCL 4MG/2ML INJ IV PRN (16:00)
[2021-02-27] MEDS: SODIUM CHLORIDE 0.9% 1,000 ML IV SCH (19:52)
[2021-02-27] MEDS: ATORVASTATIN CALCIUM 20MG TABLET PO SCH (21:54)
[2021-02-28] VITALS (11 sets, daily range): BP systolic 103–112; BP diastolic 45–64
[2021-02-28] MEDS: VANCOMYCIN 750 MG PREMIX 150 ML IV SCH ×3 (05:39→21:08)
[2021-02-28] MEDS: PHENYTOIN SODIUM EXTENDED 100MG CAPSULE PO SCH ×3 (05:39→21:08)
[2021-02-28 08:27] LABS: HEMOGLOBIN. 8.3 g/dL (14.0-18.0); MEAN CORPUSCULAR HEMOGLOBIN 39.9 pg (28.0-32.0); MEAN CORPUSCULAR VOLUME 120.5 fL (80.0-94.0); MEAN PLATELET VOLUME 9.8 fl (7.4-10.4); PLATELET 130 x1000/uL (130-400); RED BLOOD CELL COUNT 2.08 mill/uL (4.7-6.1); RED CELL DISTRIBUTION WIDTH 16.2 % (11.6-14.6)
[2021-02-28] MEDS: ASPIRIN 81MG EC TABLET PO SCH (08:45)
[2021-02-28] MEDS: CLOPIDOGREL 75MG TABLET PO SCH (08:45)
[2021-02-28] MEDS: TAMSULOSIN HCL 0.4MG SR CAPSULE PO SCH (08:45)
[2021-02-28] MEDS: MIDODRINE HCL 5MG TABLET PO SCH ×3 (08:46→17:52)
[2021-02-28] MEDS: GABAPENTIN 100MG CAPSULE PO SCH ×3 (08:46→17:52)
[2021-02-28] MEDS: FAMOTIDINE 20MG TABLET PO SCH (08:46)
[2021-02-28 09:03] LABS: CHLORIDE 104 mEq/L (98-107)
[2021-02-28 15:57] LABS: PLATELET ESTIMATE NORMAL
[2021-02-28] MEDS ORDERED: IOHEXOL-350 100 ML BOTTLE ONE (17:35)
[2021-02-28] MEDS: SODIUM CHLORIDE 0.9% 1,000 ML IV SCH (17:52)
[2021-02-28] MEDS: ATORVASTATIN CALCIUM 20MG TABLET PO SCH (21:08)
[2021-03-01] VITALS (16 sets, daily range): BP systolic 98–120; BP diastolic 46–79
[2021-03-01] MEDS: VANCOMYCIN 750 MG PREMIX 150 ML IV SCH (05:14)
[2021-03-01] MEDS: PHENYTOIN SODIUM EXTENDED 100MG CAPSULE PO SCH ×3 (05:14→21:07)
[2021-03-01 07:55] LABS: HEMATOCRIT. 21.1 % (42.0-52.0); HEMOGLOBIN. 7.1 g/dL (14.0-18.0); MEAN CORPUSCULAR HEMOGLOBIN 40.1 pg (28.0-32.0); MEAN CORPUSCULAR VOLUME 119.4 fL (80.0-94.0); MEAN PLATELET VOLUME 9.4 fl (7.4-10.4); PLATELET 129 x1000/uL (130-400); RED BLOOD CELL COUNT 1.77 mill/uL (4.7-6.1)
[2021-03-01 08:02] LABS: CHLORIDE 102 mEq/L (98-107)
[2021-03-01] MEDS: GABAPENTIN 100MG CAPSULE PO SCH ×3 (09:17→18:12)
[2021-03-01] MEDS: FAMOTIDINE 20MG TABLET PO SCH (09:17)
[2021-03-01] MEDS: CLOPIDOGREL 75MG TABLET PO SCH (09:17)
[2021-03-01] MEDS: MIDODRINE HCL 5MG TABLET PO SCH ×3 (09:17→17:00)
[2021-03-01] MEDS: ASPIRIN 81MG EC TABLET PO SCH (09:18)
[2021-03-01] MEDS: TAMSULOSIN HCL 0.4MG SR CAPSULE PO SCH (09:18)
[2021-03-01] MEDS: SODIUM CHLORIDE 0.9% 1,000 ML IV SCH (12:32)
[2021-03-01 13:27] LABS: PLATELET ESTIMATE NORMAL
[2021-03-01 16:25] LABS: HEMATOCRIT 21.8 % (42.0-52.0); HEMOGLOBIN 7.3 g/dL (14.0-18.0)
[2021-03-01] MEDS: ATORVASTATIN CALCIUM 20MG TABLET PO SCH (21:07)
[2021-03-01 23:02] LABS: HEMATOCRIT. 23.8 % (42.0-52.0); HEMOGLOBIN. 8.1 g/dL (14.0-18.0); MEAN CORPUSCULAR HEMOGLOBIN 38.5 pg (28.0-32.0); MEAN CORPUSCULAR VOLUME 113.3 fL (80.0-94.0); MEAN PLATELET VOLUME 9.4 fl (7.4-10.4); PLATELET 128 x1000/uL (130-400)
[2021-03-01 23:38] LABS: PLATELET ESTIMATE SLIGHTLY DECREASED
[2021-03-02] VITALS (12 sets, daily range): BP systolic 105–136; BP diastolic 48–67
[2021-03-02] MEDS: PHENYTOIN SODIUM EXTENDED 100MG CAPSULE PO SCH ×3 (05:10→21:36)
[2021-03-02] MEDS: TAMSULOSIN HCL 0.4MG SR CAPSULE PO SCH (09:11)
[2021-03-02] MEDS: MIDODRINE HCL 5MG TABLET PO SCH ×3 (09:11→18:00)
[2021-03-02] MEDS: GABAPENTIN 100MG CAPSULE PO SCH ×3 (09:11→18:00)
[2021-03-02] MEDS: FAMOTIDINE 20MG TABLET PO SCH (09:11)
[2021-03-02] MEDS: SODIUM CHLORIDE 0.9% 1,000 ML IV SCH (09:15)
[2021-03-02] MEDS ORDERED: MAGNESIUM OXIDE 400MG TABLET PO NR (09:30)
[2021-03-02 12:13] LABS: BASOPHILS % 0.7 % (0.0-2.0); HEMATOCRIT. 26.9 % (42.0-52.0); HEMOGLOBIN. 8.9 g/dL (14.0-18.0); LYMPHOCYTES % 22.9 % (20.0-50.0); MEAN PLATELET VOLUME 9.7 fl (7.4-10.4); MONOCYTES % 13.4 % (2.0-8.0); PLATELET 149 x1000/uL (130-400); RED BLOOD CELL COUNT 2.29 mill/uL (4.7-6.1); RED CELL DISTRIBUTION WIDTH 20.4 % (11.6-14.6)
[2021-03-02 12:18] LABS: CHLORIDE 105 mEq/L (98-107)
[2021-03-02] MEDS: CLOPIDOGREL 75MG TABLET PO SCH (16:30)
[2021-03-02] MEDS: ASPIRIN 81MG EC TABLET PO SCH (16:39)
[2021-03-02] MEDS: SODIUM CHLORIDE 0.45% 500 ML IV NR (17:00)
[2021-03-02] MEDS: ATORVASTATIN CALCIUM 20MG TABLET PO SCH (20:39)
[2021-03-03] VITALS (12 sets, daily range): BP systolic 103–126; BP diastolic 49–62
[2021-03-03] MEDS: SODIUM CHLORIDE 0.9% 1,000 ML IV SCH (03:15)
[2021-03-03] MEDS: SODIUM CHLORIDE 0.45% 500 ML IV NR (04:57)
[2021-03-03] MEDS: PHENYTOIN SODIUM EXTENDED 100MG CAPSULE PO SCH ×3 (06:34→22:20)
[2021-03-03 07:18] LABS: HEMATOCRIT. 23.6 % (42.0-52.0); HEMOGLOBIN. 7.7 g/dL (14.0-18.0); MEAN CORPUSCULAR VOLUME 116.2 fL (80.0-94.0); MEAN PLATELET VOLUME 9.9 fl (7.4-10.4); PLATELET 131 x1000/uL (130-400); RED BLOOD CELL COUNT 2.03 mill/uL (4.7-6.1); RED CELL DISTRIBUTION WIDTH 20.2 % (11.6-14.6)
[2021-03-03 07:33] LABS: CHLORIDE 108 mEq/L (98-107)
[2021-03-03] MEDS: TAMSULOSIN HCL 0.4MG SR CAPSULE PO SCH (07:47)
[2021-03-03] MEDS: MIDODRINE HCL 5MG TABLET PO SCH ×3 (07:47→17:37)
[2021-03-03] MEDS: FAMOTIDINE 20MG TABLET PO SCH (07:47)
[2021-03-03] MEDS: ASPIRIN 81MG EC TABLET PO SCH (07:47)
[2021-03-03] MEDS: GABAPENTIN 100MG CAPSULE PO SCH ×3 (07:47→17:38)
[2021-03-03] MEDS: CLOPIDOGREL 75MG TABLET PO SCH (07:47)
[2021-03-03 13:12] LABS: PLATELET ESTIMATE NORMAL
[2021-03-03 15:05] LABS: BASOPHILS % 0.9 % (0.0-2.0); EOSINOPHILS % 0.1 % (0.0-5.0); HEMATOCRIT. 24.8 % (42.0-52.0); HEMOGLOBIN. 7.9 g/dL (14.0-18.0); LYMPHOCYTES % 15.5 % (20.0-50.0); MEAN CORPUSCULAR HEMOGLOBIN 37.1 pg (28.0-32.0); MEAN CORPUSCULAR VOLUME 116.8 fL (80.0-94.0); MEAN PLATELET VOLUME 10.2 fl (7.4-10.4); MONOCYTES % 14.3 % (2.0-8.0); NEUTROPHILS % 69.2 % (40.0-76.0); PLATELET 140 x1000/uL (130-400); RED BLOOD CELL COUNT 2.13 mill/uL (4.7-6.1); RED CELL DISTRIBUTION WIDTH 20.5 % (11.6-14.6)
[2021-03-03 16:58] LABS: PLATELET ESTIMATE NORMAL
[2021-03-03] MEDS: ATORVASTATIN CALCIUM 20MG TABLET PO SCH (21:10)
[2021-03-04] VITALS (12 sets, daily range): BP systolic 101–137; BP diastolic 49–71
[2021-03-04] MEDS: PHENYTOIN SODIUM EXTENDED 100MG CAPSULE PO SCH ×2 (06:24→13:06)
[2021-03-04 06:51] LABS: HEMATOCRIT. 22.8 % (42.0-52.0); HEMOGLOBIN. 7.5 g/dL (14.0-18.0); MEAN CORPUSCULAR HEMOGLOBIN 38.4 pg (28.0-32.0); MEAN CORPUSCULAR VOLUME 116.3 fL (80.0-94.0); MEAN PLATELET VOLUME 10.1 fl (7.4-10.4); PLATELET 132 x1000/uL (130-400); RED BLOOD CELL COUNT 1.96 mill/uL (4.7-6.1)
[2021-03-04 06:53] LABS: CHLORIDE 108 mEq/L (98-107)
[2021-03-04] MEDS: TAMSULOSIN HCL 0.4MG SR CAPSULE PO SCH (08:20)
[2021-03-04] MEDS: CLOPIDOGREL 75MG TABLET PO SCH (08:20)
[2021-03-04] MEDS: GABAPENTIN 100MG CAPSULE PO SCH ×3 (08:20→16:53)
[2021-03-04] MEDS: MIDODRINE HCL 5MG TABLET PO SCH ×3 (08:20→16:53)
[2021-03-04] MEDS: FAMOTIDINE 20MG TABLET PO SCH (08:20)
[2021-03-04] MEDS: ASPIRIN 81MG EC TABLET PO SCH (08:20)
[2021-03-04 16:21] LABS: PLATELET ESTIMATE NORMAL
== END 2021-03-04 20:45 | DRG 314 ==
LOC: ER 15:29 → 3WST 17:46 → EDBEDREQ 18:15 → ENRESERV 21:12
PROVIDERS: ADMIT Internal Medicine; ATTEND Internal Medicine
PROC: 30233N1 Transfusion of Nonautologous Red Blood Cells into Peripheral Vein, Percutaneous Approach (ICD-10-PCS; principal; 2021-03-01)
DX: I95.9 Hypotension, unspecified (principal); N17.0 Acute kidney failure with tubular necrosis; E44.0 Moderate protein-calorie malnutrition; I45.3 Trifascicular block; I47.2 Ventricular tachycardia; I50.22 Chronic systolic (congestive) heart failure; D50.9 Iron deficiency anemia, unspecified; D53.9 Nutritional anemia, unspecified; E78.5 Hyperlipidemia, unspecified; E87.5 Hyperkalemia; I65.29 Occlusion and stenosis of unspecified carotid artery; Z20.822 Contact with and (suspected) exposure to COVID-19; I25.10 Atherosclerotic heart disease of native coronary artery without angina pectoris; I25.5 Ischemic cardiomyopathy; I25.82 Chronic total occlusion of coronary artery; I27.20 Pulmonary hypertension, unspecified; I34.0 Nonrheumatic mitral (valve) insufficiency; I44.0 Atrioventricular block, first degree; I11.0 Hypertensive heart disease with heart failure; E78.00 Pure hypercholesterolemia, unspecified; G40.909 Epilepsy, unspecified, not intractable, without status epilepticus; D69.6 Thrombocytopenia, unspecified; I70.203 Unspecified atherosclerosis of native arteries of extremities, bilateral legs; I25.2 Old myocardial infarction; Z79.02 Long term (current) use of antithrombotics/antiplatelets; Z79.82 Long term (current) use of aspirin; Z79.899 Other long term (current) drug therapy; Z85.028 Personal history of other malignant neoplasm of stomach; Z86.73 Personal history of transient ischemic attack (TIA), and cerebral infarction without residual deficits; Z95.1 Presence of aortocoronary bypass graft; Z95.5 Presence of coronary angioplasty implant and graft; Z68.21 Body mass index [BMI] 21.0-21.9, adult; D72.819 Decreased white blood cell count, unspecified
CPT/HCPCS: 36415; 70551; 71045; 72170; 74018; 75635; 80048; 80053; 80202; 81003; 82140; 82270; 82550; 82607; 82728; 82746; 82962; 83540; 83550; 83605; 83735; 83880; 84145; 84484; 85014; 85018; 85025; 85044; 86850; 86900; 86920; 87077; 87186; 87426; 87804; 92610; 93005; 93306; 93923; 97110; 97116; 97162; 97166; 97530; 97535; 99291; J2270; J2543; J3370; J7030; J7040; J7060; P9016; Q9967